=== PATIENT | female | born 2000 | race Caucasian/White ===

== ENCOUNTER 2018-01-08 18:32 | Emergency (ER) | payer MEDICAID ==
[2018-01-08 20:08] LABS: URINE MICROSCOPIC INDICATED? YES; URINE SOURCE RANDOM
[2018-01-08 20:11] LABS: URINE BILIRUBIN NEGATIVE (NEGATIVE); URINE BLOOD TRACE (NEGATIVE); URINE GLUCOSE (UA) NEGATIVE (NEGATIVE); URINE KETONE NEGATIVE (NEGATIVE); URINE LEUKOCYTE ESTERASE TRACE (NEGATIVE); URINE NITRATE NEGATIVE (NEGATIVE); URINE PH 5.5 (4.6 - 8.0); URINE PROTEIN NEGATIVE (NEGATIVE); URINE UROBILINOGEN 0.2 E.U./dL (0.2 - 1.0)
--- NOTE | 2018-01-08 20:15 | ED Physician Chart ---
ED Chief Complaint/HPI - Patient Information Date Seen:: 01/08/18 Time Seen:: 20:14 Chief Complaint:: Vaginal spotting and History of Present Illness:: 17 yo female, , who was at 12 weeks gestation with last menstrual period on 10/20/17, had vaginal spotting once today. She had urinary frequency and low abdomen cramp. She denied fever, nausea or vomiting. Allergies:: Allergies Allergy/AdvReac Type Severity Reaction Status Date / Time No Known Allergies Allergy Verified 01/08/18 18:43 Vitals:: Vital Signs - 8 hr 01/08/18 18:45 Temp 98.1 F HR 96 RR 19 BP 101/62 O2 Sat % 98 ED Review of Systems - Review of Systems General/Constitutional: No fever Skin: No skin lesions Head: No headache Eyes: No pain ENT: No nasal drainage Neck: No neck pain Cardio Vascular: No chest pain Pulmonary: No SOB GI: No nausea, No vomiting G/U: No dysuria, Frequency Repairer Typewriter: Abnormal vaginal bleeding Musculoskeletal: No bone or joint pain ED Past Medical History - Past Medical History Past Medical History: No significant medical hx Social History: Non Smoker, No Alcohol, No Drug Use Surgical History: None Family Medical History - Family Member Mother History Unknown: Yes ED Physical Exam - Physical Examination General/Constitutional: Awake, Alert Head: Atraumatic Eyes: PERRL Skin: No skin lesions ENMT: Nasal exam nl Neck: No nuchal rigidity Respiratory: No Wheeze/Rhonchi/Rales Cardio Vascular: RRR, No murmur, gallop, rubs, NL S1 S2 GI: No tenderness/rebounding/guarding : No CVA tenderness Extremities: normal strength in all extremities Neuro/Psych: No focal deficits ED Labs/Radiology/EKG Results - Lab Results Results: Laboratory Tests 01/08/18 19:41 POC Ur Test Positive Laboratory Results - last 24 hr 01/08/18 01/08/18 01/08/18 19:40 19:40 19:41 WBC RBC Hgb Hct MCV MCH MCHC Differential RDW Plt Count MPV Neutrophils % Lymphocytes % Monocytes % Eosinophils % Basophils % Sodium Potassium Chloride Carbon Dioxide Anion Gap BUN Creatinine Est GFR ( Amer) Est GFR (Non-Af Amer) BUN/Creatinine Ratio Glucose Whole Bld Lactic Acid Calcium Beta HCG, Quant Urine Source RANDOM Urine Color YELLOW Urine Clarity CLEAR Urine pH 5.5 Ur Specific [place] >= 1.030 Urine Protein NEGATIVE Urine Glucose (UA) NEGATIVE Urine Ketones NEGATIVE Urine Blood TRACE Urine Nitrate NEGATIVE Urine Bilirubin NEGATIVE Urine Urobilinogen 0.2 Ur Leukocyte Esterase TRACE H Urine RBC 0-2 Urine WBC 2-5 Ur Epithelial Cells MODERATE Urine Bacteria NONE SEEN Urine Yeast FEW H Urine Test POSITIVE POC Ur Test Positive 01/08/18 01/08/18 01/08/18 21:27 21:27 21:27 WBC 12.8 H RBC 4.31 Hgb 12.4 Hct 36.5 L MCV 84.8 MCH 28.7 MCHC Differential 33.9 RDW 13.3 Plt Count 236 MPV 8.0 Neutrophils % 79.8 Lymphocytes % 13.7 L Monocytes % 4.2 Eosinophils % 1.4 Basophils % 0.9 Sodium 134 L Potassium 3.8 Chloride 104 Carbon Dioxide 26.4 Anion Gap 7.4 BUN 9 Creatinine 0.4 L Est GFR ( Amer) > 60.0 Est GFR (Non-Af Amer) > 60.0 BUN/Creatinine Ratio 22.5 Glucose 90 Whole Bld Lactic Acid 0.63 Calcium 9.4 Beta HCG, Quant 33982 H* Urine Source Urine Color Urine Clarity Urine pH Ur Specific [place] Urine Protein Urine Glucose (UA) Urine Ketones Urine Blood Urine Nitrate Urine Bilirubin Urine Urobilinogen Ur Leukocyte Esterase Urine RBC Urine WBC Ur Epithelial Cells Urine Bacteria Urine Yeast Urine Test POC Ur Test - Radiology Results Results: Pelvic u/s: single alive IUP, 10w6d ED Assessment - Assessment General Assessment: 10 week 6 days gestation UTI Assessment/Comments:: CBC, BMP, hCG Pelvic u/s D/c home Keflex 250mg bid x 7day F/u Repairer Typewriter ED Septic Shock - . Is Septic Shock (SBP<90, OR Lactate>4 mmol\L) present?: No - <6hrs of presentation: Vital Signs: Vital Signs - 8 hr 01/08/18 18:45 Temp 98.1 F HR 96 RR 19 BP 101/62 O2 Sat % 98 ED Reassessment (Disposition) - Reassessment Reassessment Condition:: Unchanged - Patient Disposition Discharge/Transfer:: Home ED Discharge Plan - Patient Disposition Prescriptions: Cephalexin [Keflex] 250 mg PO Q12H #14 cap Instructions: Urinary Tract Infection, [id number] Additional Instructions: follow up with your OBGYN [facility] take prescribed medications as ordered
[2018-01-08 20:37] LABS: URINE CLARITY CLEAR (CLEAR); URINE COLOR YELLOW
[2018-01-08 20:40] LABS: URINE BACTERIA NONE SEEN /hpf (NONE SEEN); URINE EPITHELIAL CELLS MODERATE /lpf (FEW); URINE RBC 0-2 /hpf (0-5); URINE YEAST FEW /hpf (NONE SEEN)
[2018-01-08 21:36] LABS: % BASOPHILS 0.9 % (0.0-2.0); % EOSINOPHILS 1.4 % (0.0-5.0); % LYMPHOCYTES 13.7 % (20.0-50.0); % MONOCYTES 4.2 % (2.0-10.0); % NEUTROPHILS 79.8 % (40.0-80.0); BASOPHILE ABSOLUTE 0.1 Th/cumm (0-0.2); EOSINOPHILE ABSOLUTE 0.2 Th/cmm (0.1-0.4); HEMATOCRIT 36.5 % (41.0-60); HEMOGLOBIN 12.4 gm/dL (12-16); LYMPHOCYTE ABSOLUTE 1.8 Th/cmm (1.5-3.0); MEAN CELL VOLUME 84.8 fl (81-100); MEAN CORPUSCULAR HEMOGLOBIN 28.7 pg (27.0-31.0); MEAN CORPUSCULAR HGB CONC 33.9 pg (28.0-36.0); MONOCYTE ABSOLUTE 0.5 Th/cmm (0.3-1.0); NEUTROPHILE ABSOLUTE 10.2 Th/cmm (1.8-8.0); PLATELET COUNT 236 Th/cmm (150-400); RED BLOOD COUNT 4.31 Mil/cmm (3.80-5.10); RED CELL DISTRIBUTION WIDTH 13.3 % (11.5-20.0)
[2018-01-08 21:39] LABS: WHITE BLOOD COUNT 12.8 Th/cmm (4.8-10.8)
[2018-01-08 21:46] LABS: ANION GAP 7.4 (7.0-16.0); BUN - UREA NITROGEN 9 mg/dL (7-25); CALCIUM SERUM 9.4 mg/dL (8.6-10.3); CARBON DIOXIDE 26.4 mEq/L (21.0-31.0); CHLORIDE 104 mEq/L (98-107); CREATININE - SERUM 0.4 mg/dL (0.6-1.2); GFR AFRICAN-AMERICAN > 60.0 ml/min (>90); GFR NON AFRICAN-AMERICAN > 60.0 ml/min; GLUCOSE 90 mg/dL (70-105); POTASSIUM SERUM 3.8 mEq/L (3.5-5.1); SODIUM SERUM 134 mEq/L (136-145)
[2018-01-08 22:20] LABS: HCG QUANT 72348 mIU/mL (0-0)
--- NOTE | 2018-01-09 08:24 | Diagnostic Imaging Report ---
Exam: OB limited ultrasound HISTORY: Spotting Findings: Real-time ultrasound examination of the pelvis was performed planes utilizing transvaginal technique The study demonstrates single live intrauterine gestation fetus is proper presentation with cardiac activity 1 69 bpm. [place]-rump length of the pole is 3.9 cm roughly correspond to 10 weeks 6 days estimated gestational age. TJ 07/25/2018. Cervix is closed at 2.4 cm. IMPRESSION: Single live intrauterine gestation fetus in cephalic presentation. Gestational age 10 weeks 6 days. Clinical correlation and follow-up examination recommended.
== END 2018-01-08 23:00 | disposition home or self-care (01) ==
LOC: ER 18:32
DX: O26.891 Other specified pregnancy related conditions, first trimester (principal); N93.9 Abnormal uterine and vaginal bleeding, unspecified; Z3A.10 10 weeks gestation of pregnancy
CPT/HCPCS: 99285; 76811; 36415; 84702; 83605; 85025; 81001; 81025 ×2; 80048; J0690